=== PATIENT | female | born 1970 | race Asian ===

== ENCOUNTER 2017-12-23 06:24 | Day surgery (SDC) | payer OTHER ==
[2017-12-23] MEDS ORDERED: FENTAnyl 50 MCG/ML VIAL ×2 (08:59→10:09)
[2017-12-23] MEDS ORDERED: SUCCINYLCHOLINE CHLORIDE 100 MG/5 ML SYG IV (09:14)
[2017-12-23] MEDS ORDERED: CEFAZOLIN 1 GM INJ (09:14)
[2017-12-23] MEDS ORDERED: SUGAMMADEX SODIUM 200 MG/2 ML VIAL IV (09:14)
[2017-12-23] MEDS ORDERED: PROPOFOL 20 ML (09:14)
[2017-12-23] MEDS ORDERED: ROCURONIUM 50 MG INJ (09:14)
[2017-12-23] MEDS ORDERED: LIDOCAINE 100 MG SYRINGE (09:14)
[2017-12-23] MEDS ORDERED: MEPERIDINE 25 MG INJ IV (09:30)
[2017-12-23] MEDS ORDERED: DIPHENHYDRAMINE 50 MG INJ IV (09:30)
[2017-12-23] MEDS ORDERED: HYDROmorphONE (0.2 MG/ML) 10ML SYG IV ×3 (09:30)
[2017-12-23] MEDS ORDERED: ONDANSETRON 4 MG INJ IV (09:30)
[2017-12-23] MEDS ORDERED: FENTAnyl 50 MCG/ML VIAL IV (09:30)
[2017-12-23] MEDS ORDERED: ROPIVACAINE 0.5 % 30 ML VIAL (09:38)
[2017-12-23] MEDS ORDERED: ACETAMINOPHEN 325 MG TAB PO (10:00)
[2017-12-23] MEDS ORDERED: METOCLOPRAMIDE 10 MG INJ (10:09)
[2017-12-23] MEDS: FENTAnyl 50 MCG/ML VIAL IV (10:30)
[2017-12-23] MEDS: METOCLOPRAMIDE 10 MG INJ IV (10:31)
== END 2017-12-23 12:16 | disposition home or self-care (01) ==
LOC: SDS 06:24
DX: N84.1 Polyp of cervix uteri (principal); D25.9 Leiomyoma of uterus, unspecified
CPT/HCPCS: 58558; 84702; 86850; 86900; 86901; 88305

== ENCOUNTER 2018-10-02 17:52 | Emergency (ER) | payer OTHER ==
[2018-10-02 18:22] LABS: URINE BLOOD (Dip) POC 1+ (NEGATIVE); URINE GLUCOSE (Dip) POC Negative (NEGATIVE); URINE KETONES (Dip) POC Negative (NEGATIVE); URINE LEUKOCYTE EST (Dip) POC Negative (NEGATIVE); URINE NITRITE (Dip) POC Negative (NEGATIVE); URINE TOTAL PROTEIN POC Negative (NEGATIVE)
[2018-10-02 18:37] LABS: ADD UMIC YES; UR ASCORBIC ACID NEGATIVE (NEGATIVE); UR BACTERIA FEW /HPF (NONE SEEN); UR BILIRUBIN (Dip) NEGATIVE (NEGATIVE); UR BLOOD (Dip) 1+ mg/dL (NEGATIVE); UR CLARITY CLEAR (CLEAR); UR COLOR YELLOW (YELLOW); UR GLUCOSE (Dip) NEGATIVE (NEGATIVE); UR KETONES (Dip) NEGATIVE (NEGATIVE); UR LEUKOCYTE ESTERASE (Dip) NEGATIVE Leu/ul (NEGATIVE); UR NITRITE (Dip) NEGATIVE (NEGATIVE); UR RBC 4 /HPF (0-5); UR SPECIFIC GRAVITY (Dip) 1.011 (1.003-1.030); UR SQUAMOUS EPITHELIAL CELL FEW /HPF (FEW); UR TOTAL PROTEIN (Dip) NEGATIVE (NEGATIVE); UR UROBILINOGEN (Dip) NEGATIVE (NEGATIVE); UR WBC 1 /HPF (0-5)
[2018-10-02 19:06] LABS: ADD MAN DIFF? NO
[2018-10-02 19:08] LABS: BASOPHILS % 0.3 % (0.0-2.0); EOSINOPHILS # 0.1 10^3/ul (0.0-0.5); EOSINOPHILS % 2.3 % (0.0-7.0); HEMATOCRIT 37.4 % (37.0-47.0); HEMOGLOBIN 12.2 g/dl (12.0-16.0); LYMPHOCYTES # 1.7 10^3/ul (0.8-2.9); LYMPHOCYTES % 42.1 % (15.0-51.0); MEAN CORPUSCULAR HEMOGLOBIN 28.4 pg (29.0-33.0); MEAN CORPUSCULAR HGB CONC 32.6 g/dl (32.0-37.0); MONOCYTE # 0.6 10^3/ul (0.3-0.9); MONOCYTES % 14.1 % (0.0-11.0); NEUTROPHIL # 1.6 10^3/ul (1.6-7.5); NEUTROPHILS % 40.9 % (39.0-77.0); PLATELET COUNT 213 10^3/UL (140-415); RED CELL DISTRIBUTION WIDTH 12.8 % (11.5-14.5)
[2018-10-02] MEDS: ONDANSETRON 4 MG INJ IV (19:09)
[2018-10-02] MEDS: SOD CHLORIDE 0.9% 1,000 ML IV (19:10)
[2018-10-02] MEDS: morphine 4 MG/ML VIAL IV (19:10)
[2018-10-02 19:26] LABS: ALANINE AMINOTRANSFERASE 13 IU/L (13-69); ALBUMIN 3.9 g/dl (3.3-4.9); ALKALINE PHOSPHATASE 47 IU/L (42-121); ANION GAP 8 (5-13); ASPARTATE AMINO TRANSFERASE 18 IU/L (15-46); BLOOD UREA NITROGEN 10 mg/dl (7-20); CALCIUM 9.1 mg/dl (8.4-10.2); CARBON DIOXIDE 24 mmol/L (21-31); CHLORIDE 107 mmol/L (97-110); CREATININE 0.55 mg/dl (0.44-1.00); Estimated GFR > 60 mL/min (>60); GLUCOSE 97 mg/dl (70-220); LIPASE 125 U/L (23-300); POTASSIUM 3.5 mmol/L (3.5-5.1); SODIUM 139 mmol/L (135-144); TOTAL PROTEIN 6.9 g/dl (6.1-8.1)
[2018-10-02 19:29] LABS: INR 0.86; PROTIME 11.8 Sec (11.9-14.9); PT RATIO 0.9
[2018-10-02 19:30] LABS: PARTIAL THROMBOPLASTIN TIME 28.9 Sec (23.0-35.0)
== END 2018-10-02 20:16 | disposition home or self-care (01) ==
LOC: FTE 17:52
DX: R10.32 Left lower quadrant pain (principal); R11.2 Nausea with vomiting, unspecified; R10.2 Pelvic and perineal pain
CPT/HCPCS: 36415; 74176; 80053; 81001; 81003; 81025; 83690; 85025; 85610; 85730; 96361; 96374; 96375; 99285-25